=== PATIENT | female | born 1990 | race Caucasian/White ===

== ENCOUNTER 2023-09-19 20:20 | Emergency (ER) | payer OTHER ==
[~2023-09-19] VITALS: Ht 154.9 cm; Wt 68.0 kg
[2023-09-19 20:30] VITALS: BP_SYST 114; PULSE 90; RESP 16; TEMP 98.2; O2SAT 98
[2023-09-19 21:07] LABS: EOSINOPHILS % (AUTO) 0.8 % (0.0-4.0); HEMATOCRIT 32.9 % (36-48); HEMOGLOBIN 11.4 g/dL (12.0-16.0); LYMPHOCYTES # (AUTO) 1.4 K/uL (1.0-5.5); LYMPHOCYTES % (AUTO) 29.6 % (20.5-51.5); MEAN CORPUSCULAR HEMOGLOBIN 32 pg (27-31); MEAN CORPUSCULAR HGB CONC 35 % (32-36); MEAN CORPUSCULAR VOLUME 91 fL (79.0-98.0); MONOCYTES # (AUTO) 0.3 K/uL (0.0-1.0); MONOCYTES % (AUTO) 6.4 % (1.7-9.3); NEUTROPHILS % (AUTO) 62.2 % (40.0-70.0); PLATELET COUNT (AUTO) 246 K/uL (130-430); RED BLOOD CELL COUNT(AUTO) 3.62 MIL/uL (4.2-6.2); RED CELL DISTRIBUTION WIDTH 13.3 % (9.0-15.0); WHITE BLOOD COUNT (AUTO) 4.7 K/uL (4.8-10.8)
[2023-09-19 21:34] LABS: ANION GAP 8 (5-15); CALCIUM 8.6 mg/dL (8.4-11.0); CARBON DIOXIDE 30 mmol/L (23-29); CHLORIDE 101 mmol/L (98-107); CREATININE 0.69 mg/dL (0.55-1.30); GFR AFRICAN AMERICAN 126 mL/min (>90); GFR NON AFRICAN-AMERICAN 104 mL/min (>90); GLUCOSE 111 mg/dL (74-106); POTASSIUM 3.8 mmol/L (3.5-5.1); SODIUM SERUM 139 mmol/L (136-145); THYROID STIMULATING HORMONE 3.39 uIu/mL (0.36-3.74); UREA NITROGEN, BLOOD 9 mg/dL (8-21)
[2023-09-19 21:36] LABS: SERUM HCG (QUALITATIVE) NEGATIVE (NEGATIVE)
[2023-09-19 23:03] VITALS: BP_SYST 113; PULSE 73; RESP 23; TEMP 98.3; O2SAT 96
== END 2023-09-19 23:03 | disposition home or self-care (01) ==
LOC: SED 20:20
DX: R07.89 Other chest pain (principal); R06.4 Hyperventilation
CPT/HCPCS: 36415; 71045; 80048; 83880; 84439; 84443; 84484; 84703; 85025; 93005; 99285